=== PATIENT | female | born 1950 | race Caucasian/White ===

== ENCOUNTER 2016-09-01 11:43 | Observation (INO) | payer BC ==
[2016-09-01] MEDS ORDERED: ALBUTEROL 0.083% 3 ML NEB NEB ONE (12:36)
--- NOTE | 2016-09-01 12:36 | EDPRACDOC ---
- General Information Chief Complaint: Dyspnea/Resp distress Stated Complaint: TROUBLE BREATHING O2 SAT LOW 74% Time Seen by Provider: 09/01/16 11:56 Mode Of Arrival: Car Home Medications: Home Medications Aspirin (Enteric Coated) [Ecotrin] 81 mg PO DAILY 09/01/16 Furosemide [Lasix] 40 mg PO DAILY 09/01/16 Gabapentin [Neurontin] 400 mg PO QID 09/01/16 Insulin Novolog 70/30 MIX [Novolog 70-30 Mix] 62 units SQ BID 09/01/16 Lisinopril [Prinivil] 5 mg PO DAILY 09/01/16 Metformin HCl 500 mg PO TID 09/01/16 Potassium Chloride [Klor-Con M20] 20 meq PO DAILY 09/01/16 Pravastatin [Pravachol] 40 mg PO HS 09/01/16 Venlafaxine HCl [Effexor Xr] 150 mg PO DAILY 09/01/16 Allergies/Adverse Reactions: Allergies Allergy/AdvReac Type Severity Reaction Status Date / Time ramipril [From Altace] Allergy Headache Verified 09/01/16 11:47 - History of Present Illness HPI: PATIENT PRESENTS C/O SOB SINCE LAST NIGHT. SHE SAW DR. HAYNES THIS AM AND WAS FOUND TO HAVE A PAO2 OF47. PATIENT STATES NONPRODUCTIVE COUGH. HX OF COPD - QUIT SMOKING 5 YEARS AGO. NEEDS INHALERS BUT NO O2 AT HOME. Shortness of Breath: Mild Relevant History: Reports: COPD Cough: Reports: Non-productive Rhinorrhea: Reports: Clear Ear Symptoms: Reports: None SOB Worsens with: Reports: Exertion SOB Improves with: Reports: Nothing Associated Signs and symptoms: Reports: Cough ED Past Medical History - History Reviewed Yes Nurses notes reviewed and agree except as marked Travel Outside of [place] in the Last 3 Months?: No - Patient Medical History Cardiac History: Reports: Hypertension, Congestive Heart Failure, Hypercholesterolemia Respiratory History: Reports: COPD Musculoskeletal History: Reports: Arthritis - Social Medical History ETOH: None Substance Abuse: None Lives With: Family Lives In: Home EDM Review of Systems - Review of Systems ROS Negative Except as Marked: Yes All systems reviewed and were negative except as marked Constitutional: Fatigue. negative: Chills, Fever, Loss of Appetite, Weakness Eyes: No Symptoms Reported. negative: Redness, Blurred Vision, Double Vision, Discharge, Pain, Light Sensitive, Photophobia Ears: No Symptoms Reported. negative: Pain, Hearing Loss, Drainage, Ear Pulling Throat: No Symptoms Reported. negative: Pain, Swelling Nose: No Symptoms Reported. negative: Congestion, Bleeding, Discharge, Injection, Swelling, Deformity, Ecchymosis, Tender, Abrasion, Laceration Mouth: No Symptoms Reported. negative: Pain, Drooling Respiratory: Cough, Shortness of Breath. negative: Barky Cough, Brassy Cough, Hemoptysis, Wheezing Cardiovascular: No Symptoms Reported. negative: Chest Pain, Palpitations, Syncope, Edema, Orthopnea, PND, Skin Mottling, Cyanosis Gastrointestinal: No Symptoms Reported. negative: Pain, Constipation, Nausea, Vomiting, Diarrhea, Melena, Formula Intolerance Genitourinary: No Symptoms Reported. negative: Dysuria, Hematuria, Frequency, Discharge, Bleeding, Testicular Pain, Neurological: No Symptoms Reported. negative: Headache, Dizziness, Seizure, Numbness, Weakness, Speech Difficulty, Gait Difficulty Musculoskeletal: No Symptoms Reported. negative: Neck, Chestwall, Ribs, Back, Shoulder, Arm, Elbow, Forearm, Wrist, Hand, Pelvis, Hip, Femur, Knee, Leg, Ankle , Foot Integumentary: No Symptoms Reported. negative: Itching, Rash, Bruising, Wound Allergic/Immunologic: No Symptoms Reported. negative: Hives, Itching Hematologic: No Symptoms Reported. negative: Lymphadenopathy, Easy Bruising, Easy Bleeding Endocrine: No Symptoms Reported. negative: Weight Gain, Weight Loss Psychiatric: No Symptoms Reported. negative: Anxiety, Depression, Hallucinations, Insomnia, Suicidal - Physical Exam Constitutional: Alert (Awake), Distress (MILD) Oriented to: Time, Person, Place Last recorded Vital Signs: Last Vital Signs Temp 97.8 F 09/01/16 11:47 Pulse 91 09/01/16 12:06 Resp 16 09/01/16 12:06 BP 155/77 09/01/16 12:06 Pulse Ox 93 09/01/16 12:06 Oxygen Pulse Oxygen Saturation 93 O2 Device Room Air Oxygen Flow Rate Fraction of Inspired Oxygen ( FIO2) - HEENT Head: Normal ( normocephalic) Eye Exam: Normal (PERRL, EOMI, Sclera white) Oropharynx: Normal (Pharynx:Moist without exudate,Gums-no swelling) Tympanic Membrane: Normal ENT EAC: Normal TMJ: Normal Nose: No Symptoms Reported (septum midline) Neck: Normal (FROM, trachea at midline) - Respiratory/Cardiovascular Respiratory: Diminished, Wheezes Cardiovascular: Normal (RRR without murmur, gallop or rub) - GI Auscultation: Normal (NABS) Palpation: Normal (Soft,No rebound or guarding, non distended) Tenderness: Non tender Arcos's Sign: Negative - Musculoskeletal Back: Normal (Non-Tender) Extremities: Normal (Normal tone, Pulses 2+ No cyanosis or edema, FROM) - Integumentary Skin: Normal, Warm, Dry Lymphatics: Normal (no adenopathy) - Neurologic Memory Impaired: Normal Motor Function: Normal (Normal tone, Pulses 2+ No cyanosis or edema, FROM) Cranial Nerve: Normal (CN II-X11 intact sensation, strength 5/5) Cerebellar: Normal Mood Description: Normal Perception: Normal ED SOB MDM - Results Result Diagrams: 09/01/16 12:56 09/01/16 12:15 - Departure Yes I personally saw and evaluated the patient. Disposition: Admit IP To This Hospital Condition: Fair Final Diagnosis: COPD exacerbation, Lymphadenopathy, Hypoxia, Pericardial effusion URI (upper respiratory infection) Qualifiers: URI type: unspecified URI Qualified Code(s): J06.9 - Acute upper respiratory infection, unspecified Education/Counseling Given To: Patient Education/Counseling Given Regarding: Diagnosis, Treatment, Prognosis Referrals: Chandrakant Villalba II, MD [Primary Care Provider] - One Week Decision to Admit Time: 14:32 Decision to admit date: 09/01/16 Decision to admit: from ED - Physician Consulted Hospitalist Time Called: 14:32 Provider Called: Jaimee Hui Time Print Traffic Manager Returned Call: 14:32
[2016-09-01 12:48] LABS: PARTIAL THROMB. TIME 22.6 SEC (22-35)
[2016-09-01 12:50] LABS: BLOOD UREA NITROGEN 18 MG/DL (7-17); CALCIUM 9.7 MG/DL (8.4-10.2); CALCULATED OSMOLALITY 271 MOs/Kg (270-290); CHLORIDE 101 mEq/L (98-107); GLUCOSE 114 MG/DL (70-99); SODIUM LEVEL 139 mEq/L (137-146); TOTAL PROTEIN 7.6 G/DL (6.3-8.2)
--- NOTE | 2016-09-01 13:00 | DIRPT ---
CLINICAL DATA: Shortness of breath. Nonproductive cough. EXAM: PORTABLE CHEST 1 VIEW COMPARISON: 10/20/2014 FINDINGS: Heart is borderline in size. Mild vascular congestion and peribronchial thickening. No confluent opacities or effusions. No acute bony abnormality. IMPRESSION: Mild vascular congestion and bronchitic changes. Electronically Signed By: Dequan White M.D. On: 09/01/2016 12:57
[2016-09-01 13:03] LABS: AUTOMATED BASOPHIL 0.8 % (0-2); AUTOMATED EOSINOPHIL 2.5 % (0-5); AUTOMATED MONOCYTE 4.8 % (3-10); AUTOMATED NEUTROPHIL 69.9 % (45-76); MPV 7.7 fL (7.4-10.4)
[2016-09-01] MEDS ORDERED: METHYLPREDNISOLONE 125 MG/2 ML VIAL IV ONE (13:04)
[2016-09-01] MEDS ORDERED: NS 500 ML IV ONE (13:05)
[2016-09-01] MEDS ORDERED: Pharmacy Review for Metformin - IV Contrast Given SCH (14:00)
--- NOTE | 2016-09-01 14:27 | DIRPT ---
CLINICAL DATA: Hypoxia. EXAM: CT ANGIOGRAPHY CHEST WITH CONTRAST TECHNIQUE: Multidetector CT imaging of the chest was performed using the standard protocol during bolus administration of intravenous contrast. Multiplanar CT image reconstructions and MIPs were obtained to evaluate the vascular anatomy. CONTRAST: 80 cc Isovue 370 intravenously. COMPARISON: Chest radiograph dated 09/01/2016 FINDINGS: Mediastinum/Lymph Nodes: No pulmonary emboli or thoracic aortic dissection identified. There is moderate in severity calcified and noncalcified atherosclerotic disease of the thoracic aorta. Heavy calcified atherosclerotic disease of the coronary arteries is seen. The heart is normal in size. There is minimal pericardial effusion, measuring 4 mm in cross-section at the apex. There are borderline enlarged mediastinal lymph nodes with the largest lymph node measuring 13 mm in short axis in left prevascular location. 12 mm in short axis right hilar lymph node is also seen. Several other smaller right hilar lymph nodes are also present. Less than 1 cm in short axis lymph nodes in the left hilum are also seen. No axillary lymphadenopathy. Lungs/Pleura: There are mild upper lobe predominant centrilobular emphysematous changes. No evidence of pulmonary masses or significant consolidation. Linear opacities within bilateral lung bases, more prominent on the left, likely represent hypoventilatory changes. No evidence of pleural effusion or pneumothorax. Upper abdomen: No acute findings. Prior cholecystectomy. Musculoskeletal: No chest wall mass or suspicious bone lesions identified. Review of the MIP images confirms the above findings. IMPRESSION: No evidence of pulmonary embolus or thoracic dissection. Moderate in severity calcified and noncalcified atherosclerotic disease of the thoracic aorta. Advanced calcific atherosclerotic disease of the coronary arteries. Tiny pericardial effusion. Borderline mediastinal and bilateral hilar lymphadenopathy. In the absence of pulmonary findings, systemic causes for lymphadenopathy such as rheumatoid arthritis, lupus or sarcoidosis should be considered. Lymphoproliferative disorder or metastatic lymphadenopathy is felt less likely. Follow-up in 3-6 months is recommended. Mild emphysematous changes of the lungs. Electronically Signed By: Pretty Coleman M.D. On: 09/01/2016 14:24
[2016-09-01] MEDS ORDERED: BISACODYL 5 MG TAB PO PRN (16:03)
[2016-09-01] MEDS ORDERED: ONDANSETRON HCL 4 MG/2 ML VIAL IV PRN (16:03)
[2016-09-01] MEDS ORDERED: PROMETHAZINE 25 MG/ML VIAL IV PRN (16:03)
[2016-09-01] MEDS ORDERED: DEXTROSE 25 GM/50 ML PFS IV PRN (16:03)
[2016-09-01] MEDS ORDERED: MAGNESIUM HYDROXIDE 30 ML BOTTLE PO PRN (16:03)
[2016-09-01] MEDS ORDERED: SODIUM CHLORIDE 0.9% 3 ML FLUSH FLUSH PRN (16:03)
[2016-09-01] MEDS ORDERED: GUAIFENESIN 200 MG/10 ML UDC PO PRN (16:03)
[2016-09-01] MEDS ORDERED: GLUCOSE (ORAL GEL) 15 GM TUBE PO PRN (16:03)
[2016-09-01] MEDS ORDERED: ACETAMINOPHEN 325 MG/TAB TABLET PO PRN (16:03)
[2016-09-01] MEDS ORDERED: BENZONATATE 100 MG PERLES PO PRN (16:03)
[2016-09-01] MEDS ORDERED: TEMAZEPAM 15 MG CAP PO PRN (16:03)
[2016-09-01] MEDS ORDERED: Albuterol/Ipratropium Neb 3 ML NEB NEB PRN (16:03)
[2016-09-01] MEDS ORDERED: GLUCAGON 1 MG VIAL SQ PRN (16:03)
[2016-09-01] MEDS ORDERED: REGULAR INSULIN 100 UNITS/ML - 3 ML VIAL SQ SCH (17:00)
[2016-09-01] MEDS ORDERED: NOVOLOG 70/30 MIX 100 UNITS/ML PEN SQ SCH (17:00)
[2016-09-01] MEDS ORDERED: MetFORMIN 500 MG IMMED RELEASE TAB PO SCH (17:00)
[2016-09-01] MEDS ORDERED: NS 1,000 ML IV SCH (17:00)
[2016-09-01] MEDS: SODIUM CHLORIDE 0.9% 3 ML FLUSH FLUSH SCH (17:45)
[2016-09-01 17:48] VITALS: BMI 36.9
[2016-09-01] MEDS ORDERED: CEFTRIAXONE 1 GM in D5W 100 ML IV SCH (18:00)
[2016-09-01] MEDS ORDERED: ENOXAPARIN 60 MG/0.6 ML PFS SQ SCH (18:00)
[2016-09-01] MEDS: PREDNISONE 20 MG TAB PO SCH (18:12)
[2016-09-01] MEDS: NOVOLOG 70/30 MIX 100 UNITS/ML PEN SQ SCH (18:22)
[2016-09-01] MEDS: REGULAR INSULIN 100 UNITS/ML - 3 ML VIAL SQ SCH ×2 (18:24→21:01)
[2016-09-01] MEDS ORDERED: Vaccine Screening Complete SCH (19:00)
[2016-09-01] MEDS ORDERED: AZITHROMYCIN 500 MG in D5W 250 ML IV SCH (20:00)
[2016-09-01] MEDS: Albuterol/Ipratropium Neb 3 ML NEB NEB SCH (20:48)
[2016-09-01] MEDS ORDERED: PRAVASTATIN 40 MG TABLET PO SCH (21:00)
[2016-09-01] MEDS: GABAPENTIN 400 MG CAP PO SCH (21:01)
--- NOTE | 2016-09-01 21:39 | HISTPHYS ---
- Chief Complaint Shortness of breath - History of Present Illness The patient is a 66-year-old white female with a history of COPD. She was in her usual state of health until a few days ago when she developed a very mild URI. Over the last 24 hours the patient developed more shortness of breath. She notes that the day before admission she was cleaning at home and has some shortness of breath associated with cleaning products. Her symptoms slowly increased over the course of the day and through the night yesterday. She has a cough productive of some brownish phlegm but is generally not productive she has had a sore throat and some rhinorrhea for the last 2 days and diarrhea for 1 day. She denies any fevers. She had a recent cardiac catheterization in [place] but no procedure was done. She had a routine follow-up today with Dr. Deejay marie. He noted that she was more short of breath. He center to the outpatient lab for an ABG. ABG came back pH 7.39 pCO2 of 38 and PO2 of 47. The patient was referred for admission. Additional concern was abnormal CT findings which showed borderline mediastinal and bilateral hilar lymphadenopathy. On further questioning of the patient she has a previous diagnosis of discoid lupus. She was on medication for a while and followed by Dermatology. Medication was discontinued. She was told that her lupus was gone. She was never told she had systemic lupus. - Medical History Cardiac History: Reports: Coronary Artery Disease, Hypertension, Congestive Heart Failure ("when had pneumonia"), Cardiac Catheterization (Most recent 1 was last week in [place]. No stenting was done) Respiratory History: Reports: COPD, Pneumonia (2011?) GI/ History: Reports: No Significant History Musculoskeletal History: Reports: Arthritis Systemic History: Reports: Diabetes, Lupus (Discoid lupus was her previous diagnosis.) Neurological History: Reports: No Significant History Psychological History: Reports: Depression - Surgical History Reports: Cholecystectomy, Cardiac Catheterization, Tonsillectomy/Adnoidectomy, Other (Carotid endarterectomy on the right, right wrist surgery) - Medictions/Allergies Allergies ramipril [From Altace] Allergy (Verified 09/01/16 17:23) Headache Current Medication List: Reviewed Home Medications Aspirin (Enteric Coated) [Ecotrin] 81 mg PO DAILY 09/01/16 Furosemide [Lasix] 40 mg PO DAILY 09/01/16 Gabapentin [Neurontin] 400 mg PO QID 09/01/16 Insulin Novolog 70/30 MIX [Novolog 70-30 Mix] 62 units SQ BID 09/01/16 Lisinopril [Prinivil] 5 mg PO DAILY 09/01/16 Metformin HCl 500 mg PO TID 09/01/16 Potassium Chloride [Klor-Con M20] 20 meq PO DAILY 09/01/16 Pravastatin [Pravachol] 40 mg PO HS 09/01/16 Venlafaxine HCl [Effexor Xr] 150 mg PO DAILY 09/01/16 - Family History Reports: Hypertension (Mother,Father,Sister,Brother), Diabetes (Brother,Sister) , Stroke (Sisters,Brothers), Cardiac Disorders (Mother,Father,Sister,Brother) Comment Only: Cancer (Sister-Colon,Brother-Colon, Daughter-colon) - Social History Travel Outside of [place] in the Last 3 Months?: No Lives: with Spouse Smoking Status: Former smoker (Quit smoking 5 years ago after a 40 pack year history at least) Social History: Denies: Alcohol Use - Review of Systems Constitutional: Fatigue ( Mi). negative: Chills, Fever Eyes: No Symptoms Reported (d) Ears: No Symptoms Reported Nose: Congestion, Discharge Throat/Neck: Pain (Mild x2 days) Respiratory: Barky Cough, Shortness of Breath Cardiovascular: No Symptoms Reported Gastrointestinal: Abdominal Pain. negative: Nausea, Vomiting Genitourinary: negative: Bleeding, Dysuria, Discharge Neurological: negative: Dizziness, Gait Difficulty, Headache, Weakness, Mood Changes Musculoskeletal:: Arthritis Integumentary: No Symptoms Reported Allergic/Immunologic: No Symptoms Reported Hematologic: No Symptoms Reported Endocrine: Diabetes Psychiatric: Depression (Controlled on medication) - Physical Exam Vital Signs: Initial Vitals Temperature 97.8 F 09/01/16 11:47 Pulse Rate 99 09/01/16 11:47 Respiratory Rate 22 09/01/16 11:47 Blood Pressure 127/67 09/01/16 11:47 Pulse Oxygen Saturation 84 L 09/01/16 11:47 Constitutional: Alert. negative: No apparent distress (Mild respiratory distress particularly with cough) Oriented to: Time, Person, Place - HEENT Head: Normal Eye: Normal. negative: Conjunctival Injection Oropharynx: Normal Tympanic Membrane: Normal ENT EAC: Normal Nose: Congestion Respiratory: Wheezes, Excursion (Decreased excursion), Other (Course breath sounds throughout but no true rales or rhonchi.) Cardiovascular: Normal (o te whezingDifficult to hear whether there is a murmur because) - GI Auscultation: Normal Palpation: Normal. negative: Enlarged liver, Enlarged spleen Tenderness: Non tender - Musculoskeletal Back: Normal. negative: CVA Tenderness Extremities: Normal, Pedal Pulse. negative: Calf Tenderness, Pedal Edema Spine: non-tender - Integumentary Skin: Warm, Dry Lymphatics: negative: Cervical Adenopathy, Supraclavicular Adenopathy - Neurologic Memory Impaired: Normal Motor Function: Normal Cerebellar: negative: Past-Pointing, Tremor Mood Description: Normal Thought: Coherent Perception: Normal - Foot Exam Foot Prick Test: Abnomal Right, Abnormal Left Achilles Tendon Reflex Response: Normal Skin/Nail Foot Exam: Dry Vascular Foot exam: negative: Hair Loss, Edema, Capillary refill Greater than 3- 4 seconds Foot Exam: Normal inspection - Focused CV Perfusion Exam Vital Signs: Last Vital Signs Temp 98.1 F 09/01/16 17:20 Pulse 103 09/01/16 20:00 Resp 18 09/01/16 20:00 BP 149/71 09/01/16 17:20 Pulse Ox 97 09/01/16 20:00 - Lab Results 09/01/16 12:56 09/01/16 12:15 - Diagnostic Findings CTA chest IMPRESSION: No evidence of pulmonary embolus or thoracic dissection. Moderate in severity calcified and noncalcified atherosclerotic disease of the thoracic aorta. Advanced calcific atherosclerotic disease of the coronary arteries. Tiny pericardial effusion. Borderline mediastinal and bilateral hilar lymphadenopathy. In the absence of pulmonary findings, systemic causes for lymphadenopathy such as rheumatoid arthritis, lupus or sarcoidosis should be considered. Lymphoproliferative disorder or metastatic lymphadenopathy is felt less likely. Follow-up in 3-6 months is recommended. Mild emphysematous changes of the lungs. Electronically Signed By: Pretty Coleman M.D. On: 09/01/2016 14:24 - Assessment (1) Hypoxia R09.02 - HYPOXEMIA Acute Present on Admission: Yes By ABG the patient appears to be compensated and therefore this is likely a chronic problem. It appears she will need home O2. She likely decompensated clinically because of recent illness. Will need ambulatory pulse ox tomorrow. (2) COPD exacerbation J44.1 - CHRONIC OBSTRUCTIVE PULMONARY DISEASE W (ACUTE) EXACERBATION Acute Present on Admission: Yes Chest x-ray and CTA did not show a pneumonia. She likely has a bronchitis. I am starting her on Zithromax and Rocephin. Blood cultures have been obtained. Steroids will be added as well. Nebulizers and oxygen as needed (3) Lymphadenopathy R59.1 - GENERALIZED ENLARGED LYMPH NODES Acute Present on Admission: Yes This is likely due to the patient's lupus. She was not told in the past she had systemic lupus but likely did and had cutaneous symptoms instead of discoid lupus. She needs follow-up with a technical sales engineer as an outpatient. Will draw SL E and an Javier level. (4) Diabetes mellitus E11.9 - TYPE 2 DIABETES MELLITUS WITHOUT COMPLICATIONS Chronic Present on Admission: Yes Qualifiers: Diabetes mellitus type: type 1 Diabetes mellitus complication status: D Diabetes mellitus complication detail: with polyneuropathy Diabetic retinopathy severity: D Proliferative retinopathy type: P Diabetes mellitus macular edema: D Diabetes mellitus oil heaterman insulin use: D Laterality: L Chronic kidney disease stage: C Qualified Code(s): E10.42 - Type 1 diabetes mellitus with diabetic polyneuropathy (5) Hypertension I10 - ESSENTIAL (PRIMARY) HYPERTENSION Chronic Present on Admission: Yes Qualifiers: Hypertension type: H Continue outpatient medications (6) Coronary artery disease I25.10 - ATHSCL HEART DISEASE OF [place] CORONARY ARTERY W/O ANG PCTRS Chronic Present on Admission: Yes Qualifiers: Coronary Disease-Associated Artery/Lesion type: [place] artery [place] vs. transplanted heart: N Associated angina: without angina Had recent catheterization. Medical management was recommended. Continue lisinopril pravastatin aspirin Case Care Discussed with: Patient, Family Total Time: 55 minutes Critical Care: No Couseling Time (>50% in counseling/coordination): No Code: [id number]
[2016-09-02] MEDS: Albuterol/Ipratropium Neb 3 ML NEB NEB SCH ×3 (02:11→13:14)
[2016-09-02] MEDS: SODIUM CHLORIDE 0.9% 3 ML FLUSH FLUSH SCH (03:21)
[2016-09-02 04:30] LABS: ALLEN'S TEST PASS; BEb -1.9 (+/- 2); TCO2 25.7 MMOL/L (23-27)
[2016-09-02 04:31] LABS: ABG Draw Site Right Radial; ABG Draw Tech BKL
[2016-09-02] MEDS: REGULAR INSULIN 100 UNITS/ML - 3 ML VIAL SQ SCH ×2 (06:06→11:16)
[2016-09-02] MEDS: NOVOLOG 70/30 MIX 100 UNITS/ML PEN SQ SCH (06:07)
[2016-09-02 07:08] LABS: MPV 8.2 fL (7.4-10.4)
[2016-09-02 07:13] LABS: BLOOD UREA NITROGEN 23 MG/DL (7-17); CALCIUM 9.1 MG/DL (8.4-10.2); CALCULATED OSMOLALITY 286 MOs/Kg (270-290); CHLORIDE 101 mEq/L (98-107); GLUCOSE 343 MG/DL (70-99); SODIUM LEVEL 139 mEq/L (137-146)
[2016-09-02] MEDS: PREDNISONE 20 MG TAB PO SCH (08:42)
[2016-09-02] MEDS: GABAPENTIN 400 MG CAP PO SCH ×2 (08:42→11:12)
[2016-09-02] MEDS ORDERED: FUROSEMIDE 40 MG TAB PO SCH (09:00)
[2016-09-02] MEDS ORDERED: LISINOPRIL 5 MG TAB PO SCH (09:00)
[2016-09-02] MEDS ORDERED: VENLAFAXINE XR 150 MG CAP PO SCH (09:00)
[2016-09-02 09:27] VITALS: BP 131/69; TEMP 97.8
--- NOTE | 2016-09-02 09:49 | DIRPT ---
CLINICAL DATA: Shortness of breath and productive cough. EXAM: CHEST 2 VIEW COMPARISON: 09/01/2016 FINDINGS: Lungs are adequately inflated without focal consolidation or effusion. Stable borderline cardiomegaly. Calcified plaque over the aortic arch. Remainder of the exam is unchanged. IMPRESSION: No active cardiopulmonary disease. Electronically Signed By: Deangelo Sharpe M.D. On: 09/02/2016 09:46
--- NOTE | 2016-09-02 09:51 | HISTPHYS ---
History and Physical - Chief Complaint Shortness of breath - History of Present Illness The patient is a 66-year-old white female with a history of COPD. She was in her usual state of health until a few days ago when she developed a very mild URI. Over the last 24 hours the patient developed more shortness of breath. She notes that the day before admission she was cleaning at home and has some shortness of breath associated with cleaning products. Her symptoms slowly increased over the course of the day and through the night yesterday. She has a cough productive of some brownish phlegm but is generally not productive she has had a sore throat and some rhinorrhea for the last 2 days and diarrhea for 1 day. She denies any fevers. She had a recent cardiac catheterization in [place] but no procedure was done. She had a routine follow-up today with Dr. Ferrara. He noted that she was more short of breath. He sent her to the outpatient lab for an ABG. ABG came back pH 7.39 pCO2 of 38 and PO2 of 47. The patient was referred for admission. Additional concern was abnormal CT findings which showed borderline mediastinal and bilateral hilar lymphadenopathy. On further questioning of the patient she has a previous diagnosis of discoid lupus. She was on medication for a while and followed by Dermatology. Medication was discontinued. She was told that her lupus was gone. She was never told she had systemic lupus. - Medical History Cardiac History: Reports: Coronary Artery Disease, Hypertension, Congestive Heart Failure ("when had pneumonia"), Cardiac Catheterization (Most recent 1 was last week in [place]. No stenting was done) Respiratory History: Reports: COPD, Pneumonia (2011?) GI/ History: Reports: No Significant History Musculoskeletal History: Reports: Arthritis Systemic History: Reports: Diabetes, Lupus (Discoid lupus was her previous diagnosis.) Neurological History: Reports: No Significant History Psychological History: Reports: Depression - Surgical History Reports: Cholecystectomy, Cardiac Catheterization, Tonsillectomy/Adnoidectomy, Other (Carotid endarterectomy on the right, right wrist surgery) - Medictions/Allergies Allergies ramipril [From [employer]] Allergy (Verified 09/01/16 17:23) Headache Current Medication List: Reviewed Home Medications Aspirin (Enteric Coated) [Ecotrin] 81 mg PO DAILY 09/01/16 Furosemide [Lasix] 40 mg PO DAILY 09/01/16 Gabapentin [Neurontin] 400 mg PO QID 09/01/16 Insulin Novolog 70/30 MIX [Novolog 70-30 Mix] 62 units SQ BID 09/01/16 Lisinopril [Prinivil] 5 mg PO DAILY 09/01/16 Metformin HCl 500 mg PO TID 09/01/16 Potassium Chloride [Klor-Con M20] 20 meq PO DAILY 09/01/16 Pravastatin [Pravachol] 40 mg PO HS 09/01/16 Venlafaxine HCl [Effexor Xr] 150 mg PO DAILY 09/01/16 - Family History Reports: Hypertension (Mother,Father,Sister,Brother), Diabetes (Brother,Sister) , Stroke (Sisters,Brothers), Cardiac Disorders (Mother,Father,Sister,Brother) Comment Only: Cancer (Sister-Colon,Brother-Colon, Daughter-colon) - Social History Travel Outside of [place] in the Last 3 Months?: No Lives: with Spouse Smoking Status: Former smoker (Quit smoking 5 years ago after a 40 pack year history at least) Social History: Denies: Alcohol Use - Review of Systems Constitutional: Fatigue ( Mi). negative: Chills, Fever Eyes: No Symptoms Reported (d) Ears: No Symptoms Reported Nose: Congestion, Discharge Throat/Neck: Pain (Mild x2 days) Respiratory: Barky Cough, Shortness of Breath Cardiovascular: No Symptoms Reported Gastrointestinal: Abdominal Pain. negative: Nausea, Vomiting Genitourinary: negative: Bleeding, Dysuria, Discharge Neurological: negative: Dizziness, Gait Difficulty, Headache, Weakness, Mood Changes Musculoskeletal:: Arthritis Integumentary: No Symptoms Reported Allergic/Immunologic: No Symptoms Reported Hematologic: No Symptoms Reported Endocrine: Diabetes Psychiatric: Depression (Controlled on medication) - Physical Exam Vital Signs: Initial Vitals Temperature 97.8 F 09/01/16 11:47 Pulse Rate 99 09/01/16 11:47 Respiratory Rate 22 09/01/16 11:47 Blood Pressure 127/67 09/01/16 11:47 Pulse Oxygen Saturation 84 L 09/01/16 11:47 Constitutional: Alert. negative: No apparent distress (Mild respiratory distress particularly with cough) Oriented to: Time, Person, Place - HEENT Head: Normal Eye: Normal. negative: Conjunctival Injection Oropharynx: Normal Tympanic Membrane: Normal ENT EAC: Normal Nose: Congestion Respiratory: Wheezes, Excursion (Decreased excursion), Other (Course breath sounds throughout but no true rales or rhonchi.) Cardiovascular: Normal (o te whezingDifficult to hear whether there is a murmur because) - GI Auscultation: Normal Palpation: Normal. negative: Enlarged liver, Enlarged spleen Tenderness: Non tender - Musculoskeletal Back: Normal. negative: CVA Tenderness Extremities: Normal, Pedal Pulse. negative: Calf Tenderness, Pedal Edema Spine: non-tender - Integumentary Skin: Warm, Dry Lymphatics: negative: Cervical Adenopathy, Supraclavicular Adenopathy - Neurologic Memory Impaired: Normal Motor Function: Normal Cerebellar: negative: Past-Pointing, Tremor Mood Description: Normal Thought: Coherent Perception: Normal - Foot Exam Foot Prick Test: Abnomal Right, Abnormal Left Achilles Tendon Reflex Response: Normal Skin/Nail Foot Exam: Dry Vascular Foot exam: negative: Hair Loss, Edema, Capillary refill Greater than 3- 4 seconds Foot Exam: Normal inspection - Focused CV Perfusion Exam Vital Signs: Last Vital Signs Temp 98.1 F 09/01/16 17:20 Pulse 103 09/01/16 20:00 Resp 18 09/01/16 20:00 BP 149/71 09/01/16 17:20 Pulse Ox 97 09/01/16 20:00 - Lab Results 09/01/16 12:56 09/01/16 12:15 - Diagnostic Findings CTA chest IMPRESSION: No evidence of pulmonary embolus or thoracic dissection. Moderate in severity calcified and noncalcified atherosclerotic disease of the thoracic aorta. Advanced calcific atherosclerotic disease of the coronary arteries. Tiny pericardial effusion. Borderline mediastinal and bilateral hilar lymphadenopathy. In the absence of pulmonary findings, systemic causes for lymphadenopathy such as rheumatoid arthritis, lupus or sarcoidosis should be considered. Lymphoproliferative disorder or metastatic lymphadenopathy is felt less likely. Follow-up in 3-6 months is recommended. Mild emphysematous changes of the lungs. Electronically Signed By: Pretty Coleman M.D. On: 09/01/2016 14:24 - Assessment (1) Hypoxia R09.02 - HYPOXEMIA Acute Present on Admission: Yes By ABG the patient appears to be compensated and therefore this is likely a chronic problem. It appears she will need home O2. She likely decompensated clinically because of recent illness. Will need ambulatory pulse ox tomorrow. (2) COPD exacerbation J44.1 - CHRONIC OBSTRUCTIVE PULMONARY DISEASE W (ACUTE) EXACERBATION Acute Present on Admission: Yes Chest x-ray and CTA did not show a pneumonia. She likely has a bronchitis. I am starting her on Zithromax and Rocephin. Blood cultures have been obtained. Steroids will be added as well. Nebulizers and oxygen as needed (3) Lymphadenopathy R59.1 - GENERALIZED ENLARGED LYMPH NODES Acute Present on Admission: Yes This is likely due to the patient's lupus. She was not told in the past she had systemic lupus but likely did and had cutaneous symptoms instead of discoid lupus. She needs follow-up with a beet flumer as an outpatient. Will draw SL E and an Javier level. (4) Diabetes mellitus E11.9 - TYPE 2 DIABETES MELLITUS WITHOUT COMPLICATIONS Chronic Present on Admission: Yes Qualifiers: Diabetes mellitus type: type 1 Diabetes mellitus complication status: D Diabetes mellitus complication detail: with polyneuropathy Diabetic retinopathy severity: D Proliferative retinopathy type: P Diabetes mellitus macular edema: D Diabetes mellitus small business director insulin use: D Laterality: L Chronic kidney disease stage: C Qualified Code(s): E10.42 - Type 1 diabetes mellitus with diabetic polyneuropathy (5) Hypertension I10 - ESSENTIAL (PRIMARY) HYPERTENSION Chronic Present on Admission: Yes Qualifiers: Hypertension type: H Continue outpatient medications (6) Coronary artery disease I25.10 - ATHSCL HEART DISEASE OF [place] CORONARY ARTERY W/O ANG PCTRS Chronic Present on Admission: Yes Qualifiers: Coronary Disease-Associated Artery/Lesion type: platinum artery [place] vs. transplanted heart: N Associated angina: without angina Had recent catheterization. Medical management was recommended. Continue lisinopril pravastatin aspirin Case Care Discussed with: Patient, Family Total Time: 55 minutes Critical Care: No Couseling Time (>50% in counseling/coordination): No Code: 55386 MTDD
[2016-09-02] MEDS ORDERED: POTASSIUM CHLORIDE 20 MEQ TAB PO SCH (12:00)
--- NOTE | 2016-09-02 12:45 | PCM.DCS92 ---
- Final/Secondary Discharge Diagnosis (1) Respiratory insufficiency Acute R06.89 - OTHER ABNORMALITIES OF BREATHING Present on Admission: Yes Plan/Goal/Comment: Continue O2 nebs and pulmonary toilet.. May require O2 at home (2) COPD exacerbation Resolved J44.1 - CHRONIC OBSTRUCTIVE PULMONARY DISEASE W (ACUTE) EXACERBATION Present on Admission: Yes Comment: Stable continue nebulized bronchodilators and mucolytics. (3) URI (upper respiratory infection) Acute J06.9 - ACUTE UPPER RESPIRATORY INFECTION, UNSPECIFIED Present on Admission: Yes unspecified URI P A S J06.9 - Acute upper respiratory infection, unspecified Plan/Goal/Comment: Continue finish course of Zithromax (4) Coronary artery disease Chronic I25.10 - ATHSCL HEART DISEASE OF [place] CORONARY ARTERY W/O ANG PCTRS Present on Admission: Yes [place] artery N without angina Comment: Had recent catheterization. Medical management was recommended. Continue lisinopril pravastatin aspirin (5) Diabetes mellitus Chronic E11.9 - TYPE 2 DIABETES MELLITUS WITHOUT COMPLICATIONS Present on Admission: Yes type 1 D with polyneuropathy D P D D L C E10.42 - Type 1 diabetes mellitus with diabetic polyneuropathy Plan/Goal/Comment: Continue ADA diet insulin 70 30 and metformin (6) Hypertension Chronic I10 - ESSENTIAL (PRIMARY) HYPERTENSION Present on Admission: Yes essential hypertension I10 - Essential (primary) hypertension Comment: Continue outpatient medications Discharge Disposition: Home Discharge Condition: Improved Cognitive Discharge Status: Unimpaired Physician Follow up/Referrals: Chandrakant Villalba II, MD [Primary Care Provider] - One Week Home Medications / New Prescriptions: New Albuterol/Ipratropium Neb [Duoneb] 3 ml NEB Q6H #120 nebu Prednisone 10 mg PO DAILY #20 tab.ds.pk Levalbuterol [Xopenex Hfa] 15 gm IH Q6 #2 inh Azithromycin [Zithromax] 500 mg PO DAILY #5 tablet Continue Pravastatin [Pravachol] 40 mg PO HS Insulin Novolog 70/30 MIX [Novolog 70-30 Mix] 62 units SQ BID Potassium Chloride [Klor-Con M20] 20 meq PO DAILY Aspirin (Enteric Coated) [Ecotrin] 81 mg PO DAILY Venlafaxine HCl [Effexor Xr] 150 mg PO DAILY Gabapentin [Neurontin] 400 mg PO QID Furosemide [Lasix] 40 mg PO DAILY Metformin HCl 500 mg PO TID Lisinopril [Prinivil] 5 mg PO DAILY O2 Device: Nasal Cannula Diet at Discharge: Cardiac, Heart Healthy, Low Salt, Diabetic, 2200 Calorie, High Fiber Activity: As Tolerated Call Office For: Worsening Symptoms, Fever over 101 F Discontinue use of:: Alcohol, All Illegal Substances, All Types of Tobacco - DC Summary Notes Hospital Course Note:: Discharge summary on patient named ELOINA REYNOLDS admitted to [facility] on 09/01/16 by Kristin Parra MD. Date of discharge is []. Patient has initially presented to emergency room on September 01 for evaluation of worsening difficulties breathing cough and phlegm production. She initially went to see her site surveyor in follow-up after recent cardiac catheterization. She was found dyspneic and refer per ABG which showed PaO2 of 47. Please refer the admission for further details. Patient was admitted to general medical floor, outpatient regimen for chronic medical conditions was continued. She has received IV Rocephin and Zithromax, oral prednisone and nebulized bronchodilators. Her pulmonary status has improved and stabilized. CT chest was obtained which showed no PE or thoracic dissection, calcific atherosclerosis of coronary arteries and aorta, tiny pericardial effusion and borderline medial and high lower lymphadenopathy with mild emphysema of both lungs. Patient pulmonary status has improved and stabilized and her activity level was gradually advanced. By time of discharge was able to ambulate with mild exertional dyspnea. Repeated PA and lateral chest x-ray showed no active disease. Patient did qualify for home O2 with exercise pulse ox being 84%. It was felt that by January 31 patient has reached maximum benefit of inpatient therapy and in clinically improved condition she has been discharged home to the care of the family her PCP. Total Time: 40 min Code: [id number] - Physical Exam Vital Signs: Last Vital Signs Temp 97.8 F 09/02/16 09:00 Pulse 87 09/02/16 09:00 Resp 18 09/02/16 09:00 BP 131/69 09/02/16 09:00 Pulse Ox 92 09/02/16 09:00 Oxygen Pulse Oxygen Saturation 92 O2 Device Nasal Cannula Oxygen Flow Rate 1.5 Fraction of Inspired Oxygen ( FIO2) Constitutional: No apparent distress, Alert (Awake) Oriented to: Time, Person, Place - HEENT Head: Normal ( normocephalic) Eye: Normal (PERRL, EOMI, Sclera white) Oropharynx: Normal (Pharynx:Moist without exudate,Gums-no swelling) Tympanic Membrane: Normal ENT EAC: Normal TMJ: Normal Nose: No Symptoms Reported (septum midline) - Respiratory/Cardiovascular Respiratory: Diminished, Rhonchi Cardiovascular: Normal (RRR without murmur, gallop or rub), Systolic murmur - GI Auscultation: Normal (NABS) Palpation: Normal (Soft,No rebound or guarding, non distended) Tenderness: Non tender Arcos's Sign: Negative Rectal Exam: Deferred - Exam Deferred: Yes - Musculoskeletal Back: Normal (Non-Tender) Extremities: Normal (Normal tone, Pulses 2+ No cyanosis or edema, FROM) - Integumentary Skin: Normal, Warm, Dry Lymphatics: Normal (no adenopathy) - Neurologic Memory Impaired: Normal Motor Function: Normal Cranial Nerve: Normal Cerebellar: Normal Mood Description: Normal Perception: Normal - Other Exam Other Exam Findings: Allergies ramipril [From [employer]] Allergy (Verified 09/01/16 17:23) Headache Discharge Home Medication List Aspirin (Enteric Coated) [Ecotrin] 81 mg PO DAILY 09/01/16 [History Confirmed ] Furosemide [Lasix] 40 mg PO DAILY 09/01/16 [History Confirmed 09/01/16] Gabapentin [Neurontin] 400 mg PO QID 09/01/16 [History Confirmed 09/01/16] Insulin Novolog 70/30 MIX [Novolog 70-30 Mix] 62 units SQ BID 09/01/16 [History Confirmed 09/01/16] Lisinopril [Prinivil] 5 mg PO DAILY 09/01/16 [History Confirmed 09/01/16] Metformin HCl 500 mg PO TID 09/01/16 [History Confirmed 09/01/16] Potassium Chloride [Klor-Con M20] 20 meq PO DAILY 09/01/16 [History Confirmed ] Pravastatin [Pravachol] 40 mg PO HS 09/01/16 [History Confirmed 09/01/16] Venlafaxine HCl [Effexor Xr] 150 mg PO DAILY 09/01/16 [History Confirmed ] Albuterol/Ipratropium Neb [Duoneb] 3 ml NEB Q6H #120 nebu 09/02/16 [Rx] Azithromycin [Zithromax] 500 mg PO DAILY #5 tablet 09/02/16 [Rx] Levalbuterol [Xopenex Hfa] 15 gm IH Q6 #2 inh 09/02/16 [Rx] Prednisone 10 mg PO DAILY #20 tab.ds.pk 09/02/16 [Rx] New Discharge Medications (Rx) Albuterol/Ipratropium Neb [Duoneb] 3 ml NEB Q6H #120 nebu 09/02/16 [Rx] Azithromycin [Zithromax] 500 mg PO DAILY #5 tablet 09/02/16 [Rx] Levalbuterol [Xopenex Hfa] 15 gm IH Q6 #2 inh 09/02/16 [Rx] Prednisone 10 mg PO DAILY #20 tab.ds.pk 09/02/16 [Rx] Home Medications Aspirin (Enteric Coated) [Ecotrin] 81 mg PO DAILY 09/01/16 Furosemide [Lasix] 40 mg PO DAILY 09/01/16 Gabapentin [Neurontin] 400 mg PO QID 09/01/16 Insulin Novolog 70/30 MIX [Novolog 70-30 Mix] 62 units SQ BID 09/01/16 Lisinopril [Prinivil] 5 mg PO DAILY 09/01/16 Metformin HCl 500 mg PO TID 09/01/16 Potassium Chloride [Klor-Con M20] 20 meq PO DAILY 09/01/16 Pravastatin [Pravachol] 40 mg PO HS 09/01/16 Venlafaxine HCl [Effexor Xr] 150 mg PO DAILY 09/01/16 Albuterol/Ipratropium Neb [Duoneb] 3 ml NEB Q6H #120 nebu 09/02/16 Azithromycin [Zithromax] 500 mg PO DAILY #5 tablet 09/02/16 Levalbuterol [Xopenex Hfa] 15 gm IH Q6 #2 inh 09/02/16 Prednisone 10 mg PO DAILY #20 tab.ds.pk 09/02/16 09/02/16 06:16 09/02/16 06:16 Abnormal Lab Results 09/01/16 09/01/16 09/01/16 12:15 12:56 12:56 WBC 15.2 H RBC MCV 80 L MCH 26.0 L MCHC 32.7 L RDW 16.2 H Absolute Neuts (auto) 10.49 H pH pCO2 pO2 Potassium Anion Gap BUN 18 H Glucose 114 H POC Capillary Glucose Hemoglobin A1c 10.9 H 09/01/16 09/01/16 09/02/16 18:06 21:56 04:25 WBC RBC MCV MCH MCHC RDW Absolute Neuts (auto) pH 7.330 L pCO2 46.0 H pO2 61.0 L Potassium Anion Gap BUN Glucose POC Capillary Glucose 354 H 374 H Hemoglobin A1c 09/02/16 09/02/16 09/02/16 05:16 06:16 06:16 WBC 15.9 H RBC 5.57 H MCV MCH 25.8 L MCHC 32.0 L RDW 15.9 H Absolute Neuts (auto) pH pCO2 pO2 Potassium 5.7 H D Anion Gap 20 H BUN 23 H Glucose 343 H POC Capillary Glucose 305 H Hemoglobin A1c 09/02/16 11:14 WBC RBC MCV MCH MCHC RDW Absolute Neuts (auto) pH pCO2 pO2 Potassium Anion Gap BUN Glucose POC Capillary Glucose 262 H Hemoglobin A1c Patient Name: ELOINA REYNOLDS LOC: [facility] : 1950 AGE: 66 Order Date:09/01/16 Date of Service: Report # [id number] Ord Physician: Kristin Parra MD Exam # [id number] Emergency Physician: Kulwant Vail DO Exam(s): [id number] RAD/DG CHEST 2V CLINICAL DATA: Shortness of breath and productive cough. EXAM: CHEST 2 VIEW COMPARISON: 09/01/2016 FINDINGS: Lungs are adequately inflated without focal consolidation or effusion. Stable borderline cardiomegaly. Calcified plaque over the aortic arch. Remainder of the exam is unchanged. IMPRESSION: No active cardiopulmonary disease. Electronically Signed By: Deangelo Sharpe M.D. On: 09/02/2016 09:46 Electronically Signed By: Deangelo Sharpe MD Electronically Signed Date/Time: [id number] Dictate Date/Time: 09/02/16 0942 Technologist: Rosa Maria Salmeron Transcribed By: Medardo Transcribed Date/Time: 09/02/16 0946 Last Vital Signs Temp 97.8 F 09/02/16 09:00 Pulse 87 09/02/16 09:00 Resp 18 09/02/16 09:00 BP 131/69 09/02/16 09:00 Pulse Ox 92 09/02/16 09:00 Active Problems COPD exacerbation (Acute) J44.1 Chest x-ray and CTA did not show a pneumonia. She likely has a bronchitis. I am starting her on Zithromax and Rocephin. Blood cultures have been obtained. Steroids will be added as well. Nebulizers and oxygen as needed Hypoxia (Acute) R09.02 By ABG the patient appears to be compensated and therefore this is likely a chronic problem. It appears she will need home O2. She likely decompensated clinically because of recent illness. Will need ambulatory pulse ox tomorrow. Lymphadenopathy (Acute) R59.1 This is likely due to the patient's lupus. She was not told in the past she had systemic lupus but likely did and had cutaneous symptoms instead of discoid lupus. She needs follow-up with a cut filer as an outpatient. Will draw SL E and an Javier level. Pericardial effusion (Acute) I31.3 URI (upper respiratory infection) (Acute) J06.9 Coronary artery disease (Chronic) I25.10 Had recent catheterization. Medical management was recommended. Continue lisinopril pravastatin aspirin Diabetes mellitus (Chronic) E11.9 Hypertension (Chronic) I10 Continue outpatient medications
[2016-09-02 12:53] VITALS: PULSE 105
[2016-09-03 14:40] LABS: ANTICHROMATIN IgG AB <0.2 AI (0.0-0.9); RIBONUCLEIC PROTEIN < 0.2 AI (0.0-0.9); SSB (La) AB < 0.2 AI (0.0-0.9)
[2016-09-03 15:26] LABS: ANTI-dsDNA 2 IU/mL (0-9)
== END 2016-09-02 15:01 | disposition home or self-care (01) ==
LOC: ED 11:43 → MPS3 16:04
PROVIDERS: ADMIT Family Medicine; ATTEND Internal Medicine
DX: J44.1 Chronic obstructive pulmonary disease with (acute) exacerbation (principal); I31.3 Pericardial effusion (noninflammatory); R59.1 Generalized enlarged lymph nodes; R09.02 Hypoxemia; E78.00 Pure hypercholesterolemia, unspecified; J06.9 Acute upper respiratory infection, unspecified; I10 Essential (primary) hypertension; E10.42 Type 1 diabetes mellitus with diabetic polyneuropathy; L93.0 Discoid lupus erythematosus; Z79.82 Long term (current) use of aspirin; Z79.4 Long term (current) use of insulin; Z79.899 Other long term (current) drug therapy; Z79.84 Long term (current) use of oral hypoglycemic drugs; Z87.891 Personal history of nicotine dependence
CPT/HCPCS: 36415; 36600; 71010; 71020; 71275; 80048; 80053; 82043; 82164; 82803; 82962; 83036; 83880; 84484; 85025; 85027; 85379; 85610; 85730; 86225; 87040; 93005; 94640; 96361; 96372; 96374; 98960; 99284; A9698; G0378; J0456; J0696; J1650; J1815; J2930; J3490; J7060; J7070; J7620